=== PATIENT | female | born 1950 | race Caucasian/White ===

== ENCOUNTER 2017-02-15 19:54 | Inpatient (IN) | payer OTHER ==
[~2017-02-15] VITALS: Ht 149.9 cm; Wt 47.6 kg
--- NOTE | ~2017-02-15 | H ---
[facility] [place] [address] HISTORY AND PHYSICAL Name: KENDRA KUMAR Room #: 464-P [facility] IN M.R.#: [id number] Admission: 02/15/17 Attend Phys: Apolinar Werner MD Discharge: Date of : 50 Report #: [id number] THIS REPORT FOR: //name// CC: Apolinar Werner DATE OF SERVICE: 02/16/2017 CHIEF COMPLAINT: Vomiting and diarrhea. HISTORY OF PRESENT ILLNESS: The patient is a 66-year-old female known to me who states she was her normal self and suddenly developed vomiting, diarrhea yesterday morning, it got better and it came back around dinner time. She developed diarrhea. She has had a prior partial colon resection for diverticulitis. She has no other focal symptoms and does not even have pain. PAST MEDICAL HISTORY: Significant for: 1. Diverticulitis, status post partial resection. 2. Hypertension. 3. Hyperlipidemia. She had a prior cholecystectomy, C-sections, tonsils and colon resection. She has also had hypothyroidism and reflux. MEDICATIONS: Include levothyroxine, amlodipine 5 mg a day, Maxzide one daily, atorvastatin 10 mg a day, Mucinex daily, Zyrtec 10 mg a day, hydrocodone p.r.n. pain, daily, and Pepcid daily. ALLERGIES: BETADINE. SOCIAL HISTORY: She is a nonsmoker. Does drink alcohol occasionally. No recreational drugs. REVIEW OF SYSTEMS: CONSTITUTIONAL: No fever or chills. HEENT: No headaches or visual changes. CHEST: No chest pain, tightness in chest, short of breath, cough or sputum production. GASTROINTESTINAL: Per above. GENITOURINARY: No burning or frequency. EXTREMITIES: No new joint pains or swelling. SKIN: No rashes or wounds. NEUROLOGIC: No numbness or weakness. PHYSICAL EXAMINATION: VITAL SIGNS: Blood pressure in the ER was 207/105, she is now down to 149/82, her pulse was 97, respiratory rate 18. She is afebrile. GENERAL: She is currently feeling better now after multiple doses of antiemetics. She has no more nausea, vomiting or diarrhea. She was, however, [facility] [address] [place] [address] HISTORY AND PHYSICAL Name: KENDRA KUMAR Room #: 464-[facility] IN .R.#: [id number] Admission: 02/15/17 Attend Phys: Apolinar Werner MD Discharge: Date of : 50 Report #: [id number] vomiting throughout the night. HEENT: Her mucous membranes are dry. NECK: Supple, without adenopathy, thyromegaly or bruits. CHEST: Clear to auscultation. CARDIOVASCULAR: Regular, without murmur. ABDOMEN: Slightly distended, but soft. No palpable masses, no hepatosplenomegaly. Bowel sounds are present and active. No rebound or guarding. EXTREMITIES: Show no edema. Pulses are intact. SKIN: No rashes or wounds. NEUROLOGIC: No new numbness or weakness. DIAGNOSTIC DATA: EKG sinus rhythm, rate of 90, no ST segment changes. ADMIT LABORATORY DATA: Sodium 139, potassium 3.3, chloride 102, bicarbonate 24, BUN 11, creatinine 0.8, glucose 154. AST 20, ALT 20, troponin less than 0.04, albumin 3.6. Lipase 136. WBCs 12.9, hemoglobin 14.8, hematocrit 44.1, platelet count 328, 75 segs, 17 lymphs. Urinalysis, very concentrated, greater than 1.030 specific gravity, otherwise unremarkable. CT scan of the abdomen shows a prior abdominal surgery, malposition of the cecum, but no significant bowel obstruction. There is some very slight thickening of the distal colon, but no masses or abscesses. ASSESSMENT: 1. Intractable nausea and vomiting, possibly early partial small-bowel obstruction, that is resolving. She is improving. We will continue antiemetics. 2. Mild acute kidney injury with dehydration. We will give IV fluids. 3. Hypokalemia. We will replace potassium IV. We will gradually advance her diet slowly and see how she does. 4. Hypertension. We will resume her home meds. 5. Hypothyroidism. Resume home meds. By: [id number] Apolinar Werner MD /nt
--- NOTE | ~2017-02-15 | EKG ---
[place] [address] [facility] [place] [address] ELECTROCARDIOGRAM REPORT Name: KENDRA KUMAR Room #: 464-P ADM IN M.R.#: [id number] Admission: 02/15/17 Attend Phys: Apolinar Werner MD Discharge: Date of : 50 Report #: [id number] THIS REPORT FOR: //name// [facility] ED Test Date: 2017-02-15 Test Time: 20:08:03 Pat Name: KENDRA KUMAR Department: Room: 464 Gender: F Remelt Operator: SHELLY : 1950 Requested By: Chris Hogan Order Number: [id number] MD: Romero Santiago Measurements Intervals [place] Rate: 90 P: 62 AZ: 196 QRS: -19 QRSD: 97 T: 39 QT: 425 QTc: 520 Interpretive Statements Sinus rhythm Borderline left axis deviation Prolonged QT interval No previous ECG available for comparison Electronically Signed On 02-16-2017 15:09:38 CDT by Romero Santiago [email or web address] <ELECTRONICALLY SIGNED> By: Romero Santiago MD, [facility] 02/16/17 1509 07 07 Romero Santiago MD, FACC /EPI
[~2017-02-15 19:54] MED LIST: ACID REDUCER20 MG PO; CIPRO500 MG PO; FLAGYL500 MG PO; LEVOTHYROXINE0.05 MG PO; LIPITOR10 MG PO; MAXZIDE-25 MG1 EACH PO; MUCINEX TA600 MG/TA2 PO; NABUMETONE 750750 M1 PO; NORCO 5-325 TA1 EACH PO; NORVASC5 MG PO; PROAIR HFA8.5 GM INH; SENNA-S TABLET1 EACH PO; ZOFRAN ODT4 MG PO; ZYRTEC10 MG PO
[2017-02-15 20:03] VITALS: BP 207/105
[2017-02-15 20:39] LABS: URINE BILIRUBIN NEGATIVE (Negative); URINE BLOOD 1+ (Negative); URINE COLOR YELLOW; URINE GLUCOSE-RANDOM* NEGATIVE (Negative); URINE KETONES TRACE (Negative); URINE LEUKOCYTES-REFLEX NEGATIVE (Negative); URINE PROTEIN (DIPSTICK) 3+ (Negative); URINE SPECIFIC GRAVITY >= 1.030 (1.003-1.035); URINE UROBILINOGEN 0.2 E.U./dl (0.2-1.0)
[2017-02-15 20:48] LABS: ABSOLUTE NEUTROPHILS 9.7 thou/uL (1.4-8.2); BASOPHILS 0.3 % (0.0-2.0); EOSINOPHILS 1.1 % (0.0-3.0); HEMATOCRIT 44.1 % (37.0-47.0); HEMOGLOBIN 14.8 gm/dL (12.0-15.0); LYMPHOCYTES 17.9 % (24.0-44.0); MCH 29.4 pg (26.0-34.0); MCHC 33.5 g/dL (28.0-37.0); MCV 87.8 fL (80.0-100.0); MONOCYTES 5.6 % (1.0-8.0); PLATELET COUNT 328 thou/uL (150-400); POLYS 75.1 % (36.0-66.0); RBC 5.02 mil/uL (4.20-5.00); RDW 14.3 % (10.5-14.5); WBC 12.9 thou/uL (4.0-11.0)
[2017-02-15 20:49] LABS: MANUAL DIFF NO
[2017-02-15 20:52] LABS: ANION GAP 13 mmol/L (7-16); BUN 11 mg/dL (7-18); CALCIUM 9.2 mg/dL (8.5-10.1); CHLORIDE 102 mmol/L (98-107); CO2 24 mmol/L (21-32); CREATININE 0.8 mg/dL (0.6-1.0); GLUCOSE 154 mg/dL (74-106); POTASSIUM 3.3 mmol/L (3.5-5.1); SODIUM 139 mmol/L (136-145)
[2017-02-15 20:59] LABS: ALBUMIN 3.6 g/dL (3.4-5.0); ALKALINE PHOSPHATASE 120 U/L (46-116); SGOT 20 U/L (15-37); SGPT 20 U/L (30-65); TOTAL BILIRUBIN 0.7 mg/dL (<0.1-1.0); TOTAL PROTEIN 7.4 g/dL (6.4-8.2); TROPONIN-I < 0.04 ng/mL (<0.04-0.07)
[2017-02-15 21:12] LABS: SQUAMOUS 0-3 Few /LPF (0-3)
[2017-02-15 21:13] LABS: CASTS None Seen /LPF (None Seen); CRYSTALS None Seen /LPF (None Seen); URINE RBC 3-10 Few /HPF (0-2); URINE WBC-REFLEX None Seen /HPF (0-5)
[2017-02-15 23:15] VITALS: BP 168/73
[2017-02-15 23:20] VITALS: BP 143/85
[2017-02-16 08:35] VITALS: BP 128/70
[2017-02-16 12:09] VITALS: BP 141/75
[2017-02-16 12:51] LABS: HEMATOCRIT 39.1 % (37.0-47.0); HEMOGLOBIN 12.9 gm/dL (12.0-15.0); MCH 29.3 pg (26.0-34.0); MCV 88.6 fL (80.0-100.0); RBC 4.41 mil/uL (4.20-5.00); RDW 14.3 % (10.5-14.5)
[2017-02-16 13:05] LABS: CALCIUM 7.7 mg/dL (8.5-10.1); CREATININE 0.6 mg/dL (0.6-1.0); POTASSIUM 3.3 mmol/L (3.5-5.1)
[2017-02-16 16:19] VITALS: BP 121/73
[2017-02-16 20:51] VITALS: BP 157/84
[2017-02-17 04:00] VITALS: BP 152/82
[2017-02-17 09:00] VITALS: BP 155/75
[2017-02-17 09:40] LABS: HEMATOCRIT 37.7 % (37.0-47.0); HEMOGLOBIN 12.5 gm/dL (12.0-15.0); MCH 29.3 pg (26.0-34.0); MCHC 33.2 g/dL (28.0-37.0); MCV 88.2 fL (80.0-100.0); RBC 4.27 mil/uL (4.20-5.00); RDW 14.6 % (10.5-14.5); WBC 12.4 thou/uL (4.0-11.0)
[2017-02-17 09:44] LABS: CALCIUM 7.8 mg/dL (8.5-10.1); CREATININE 0.5 mg/dL (0.6-1.0); POTASSIUM 3.3 mmol/L (3.5-5.1)
[2017-02-17] MEDS ORDERED: AUGMENTIN 875-1 EACH PO (12:17)
[2017-02-17 12:38] VITALS: BP 155/75
[2017-02-17 13:44] VITALS: BP 143/82
== END 2017-02-17 14:04 | disposition home or self-care (01) | DRG 388 ==
LOC: ER 19:54 → 4W 22:24 → EROBS 22:24 → 4W 23:10
PROVIDERS: Family Medicine; Physician Assistant
DX: K56.60 Unspecified intestinal obstruction (principal); J69.0 Pneumonitis due to inhalation of food and vomit; N17.9 Acute kidney failure, unspecified; I10 Essential (primary) hypertension; E78.5 Hyperlipidemia, unspecified; K21.9 Gastro-esophageal reflux disease without esophagitis; E03.9 Hypothyroidism, unspecified; E86.0 Dehydration; E87.6 Hypokalemia; Z90.49 Acquired absence of other specified parts of digestive tract; Z88.8 Allergy status to other drugs, medicaments and biological substances; Z91.041 Radiographic dye allergy status
CPT/HCPCS: 10045

== ENCOUNTER → 2017-10-31 | Outpatient (CLI) | payer OTHER ==
[~2017-10-31] MED LIST changes: +AUGMENTIN 875-1 EACH PO
== END ==
LOC: CAT 07:31
DX: K86.89 Other specified diseases of pancreas (principal); K57.32 Diverticulitis of large intestine without perforation or abscess without bleeding; I10 Essential (primary) hypertension; E03.9 Hypothyroidism, unspecified; Z90.49 Acquired absence of other specified parts of digestive tract; Z86.718 Personal history of other venous thrombosis and embolism

== ENCOUNTER → 2018-03-19 | Outpatient (CLI) | payer OTHER | LOC: RAD 00:56 | DX: Z12.31 Encounter for screening mammogram for malignant neoplasm of breast (principal) ==

== ENCOUNTER → 2018-04-20 | Outpatient (CLI) | payer OTHER | LOC: NUC 09:37 | DX: Z13.820 Encounter for screening for osteoporosis (principal); N91.2 Amenorrhea, unspecified; Z78.0 Asymptomatic menopausal state ==

== ENCOUNTER 2018-12-07 05:19 | Inpatient (IN) | payer OTHER ==
[2018-11-16 13:15] LABS: HEMATOCRIT 45.1 % (37.0-47.0); HEMOGLOBIN 15.3 gm/dL (12.0-15.0); MCH 29.9 pg (26.0-34.0); MCHC 33.9 g/dL (28.0-37.0); MCV 88.2 fL (80.0-100.0); RBC 5.12 mil/uL (4.20-5.00); RDW 13.9 % (10.5-14.5); WBC 10.2 thou/uL (4.0-11.0)
[2018-11-16 13:20] LABS: ALBUMIN 4.1 g/dL (3.4-5.0); CALCIUM 9.7 mg/dL (8.5-10.1); CREATININE 0.7 mg/dL (0.6-1.0); POTASSIUM 3.6 mmol/L (3.5-5.1)
[2018-11-16 13:21] LABS: URINE COLOR YELLOW
[2018-11-16 13:22] LABS: URINE BILIRUBIN NEGATIVE (Negative); URINE BLOOD NEGATIVE (Negative); URINE CLARITY CLEAR; URINE GLUCOSE-RANDOM* NEGATIVE (Negative); URINE KETONES NEGATIVE (Negative); URINE LEUKOCYTES-REFLEX NEGATIVE (Negative); URINE NITRITE-REFLEX NEGATIVE (Negative); URINE PROTEIN (DIPSTICK) NEGATIVE (Negative); URINE UROBILINOGEN 0.2 E.U./dl (0.2-1.0)
[2018-11-16 13:25] LABS: PROTIME 10.4 Seconds (9.3-11.4)
[~2018-12-07] VITALS: Ht 147.3 cm; Wt 64.9 kg
[~2018-12-07 05:19] MED LIST changes: +BENADRYL25 MG PO; +BONIVA150 MG PO; +MUCINEX100 MG PO; +SYNTHROID50 MCG PO
[2018-12-07 07:37] VITALS: BP 154/76
[2018-12-07 11:00] VITALS: BP 132/85
--- NOTE | 2018-12-07 11:21 | O ---
[facility] [place] [place] [address] OPERATIVE REPORT Name: KENDRA KUMAR Room #: 427-P [facility] IN M.R.#: [id number] Admission: 12/07/18 Attend Phys: Per Varghese MD Discharge: Date of : 50 Report #: [id number] THIS REPORT FOR: //name// CC: Per Hernandezshyam Werner DATE OF SERVICE: 12/07/2018 PREOPERATIVE DIAGNOSIS: End-stage degenerative osteoarthritis of the left knee. POSTOPERATIVE DIAGNOSIS: End-stage degenerative osteoarthritis of the left knee. PROCEDURE: Left total knee arthroplasty. SURGEON: Per Varghese M.D. INDICATIONS: This frail 68-year-old female complains of severe progressive left knee pain. Clinical exam and x-rays confirm severe degenerative osteoarthritis. We have discussed the treatment options and elected to go ahead with total knee replacement. DESCRIPTION OF PROCEDURE: The patient was taken to the operating room, where she was placed under general anesthesia. Prophylactic intravenous antibiotics were administered. The left knee and leg were meticulously prepped and draped. A thigh tourniquet was inflated to 300 mmHg. An anterior longitudinal skin incision was made and the patella was reflected laterally. Marked degenerative change in all 3 compartments was noted. The Lopez and Nephew knee system was utilized and intramedullary guides were used on both the femur and the tibia. The femur was cut in 5 degrees of valgus and the tibia cut perpendicular to long axis of the bone. Sufficient bone was resected to correct the mild preoperative varus malalignment. The femur seemed best suited for a size 3 femoral component. The tibia was best suited for a size 2 tibial component. A 9-mm polyethylene insert trial was placed and this resulted in good alignment, range of motion and stability. The patellar surface was resected and a 29-mm patellar button fit nicely and the patella seemed to track well. The trial components were removed. The bony surfaces were thoroughly irrigated and dried. The intramedullary canal was blocked with a bone block on both the femoral and tibial sides. Methyl methacrylate cement was mixed and injected into the porous surface of the proximal tibia. The Lopez and Nephew size 2 Verónica left tibial base plate was applied. This was impacted into position. It seated nicely and appeared to be secure. A 9-mm polyethylene Legion cruciate-retaining insert was applied. This snapped into position and seated nicely and appeared to be secure. A left size 3 Lopez and Nephew cruciate-retaining Legion femoral component was applied. Given her rather [facility] [address] [place] [address] OPERATIVE REPORT Name: KENDRA KUMAR Room #: 427-P [facility] IN M.R.#: [id number] Admission: 12/07/18 Attend Phys: Per Varghese MD Discharge: Date of : 50 Report #: [id number] significant osteoporosis, a moderate amount of cement was used around the distal aspect and at the anchor holes. Excess cement was removed from its margin. The component seated nicely and appeared to be secure. A size 29 Verónica II patellar resurfacing component was cemented into place using appropriate anchor holes and cement. It was secured with a patellar clamp until the cement had hardened. Range of motion, alignment and stability were assessed and felt to be satisfactory. A single Hemovac was left in the wound. The tourniquet was deflated after a total tourniquet time of 55 minutes. Good hemostasis was confirmed. The fascia was then closed with multiple #1 Vicryl sutures. The subcutaneous tissues were closed with 0 Monocryl. The skin was closed with skin elena. Sterile dressing was applied. The patient was awakened and returned to the recovery room in good condition. <ELECTRONICALLY SIGNED> By: Per Varghese MD 12/07/18 1121 [id number] Per Varghese MD /nt
--- NOTE | 2018-12-07 12:26 | NUR ---
RECEIVED PT FROM OR. PT RESTING IN BED. DENIES PAIN BUT C/O MILD GENERAL DISCOMFORT. BUPIVICAIN IN PLACE, HEMOVAC INTACT, KATHI DRESSING INTACT. TEDS/SCDS. IVF INFUSING. TOLERATING DIET. FAMILY AT BEDSIDE. WILL CONT. TO MONITOR.
[2018-12-07 16:20] VITALS: BP 107/61
[2018-12-07 20:42] VITALS: BP 117/63
--- NOTE | 2018-12-08 02:09 | NUR ---
A/O, calm and pleasant; denied pain; Bupivacaine was set to 6 by the day nurse at the end of the day shift,and to 4 by the night nurse at midnight; abx administrated; drainage works well; ice pack offered; wound dressing dry and intact. vss, afebrile. will keep monitoring.
[2018-12-08 05:30] VITALS: BP 141/64
[2018-12-08 05:30] LABS: HEMOGLOBIN 11.2 gm/dL (12.0-15.0); MCHC 32.9 g/dL (28.0-37.0); MCV 88.3 fL (80.0-100.0); RBC 3.85 mil/uL (4.20-5.00); RDW 13.9 % (10.5-14.5); WBC 11.2 thou/uL (4.0-11.0)
[2018-12-08 07:20] VITALS: BP 132/93
--- NOTE | 2018-12-08 09:44 | NUR ---
ASSUMED CARE THIS AM, SHIFT ASSESSMENT DONE, MEDS GIVEN. REPROTED MILD PAIN, PRE-MEDICATED FOR PHY. THERAPHY. WORKED WITH PHYSICAL THERAPHY, SITTING IN THE CHAIR THIS AM. HEMOVAC DRAIN WAS PULLED OUT. HAS BIPUVACAINE, LOWERED TO 2. IV FLUIDS DISCOPNTINUED. WILL CONTINUE TO ASSESS AND ASSIST WITH ADLs NEEDED.
--- NOTE | 2018-12-08 10:15 | NUR ---
0840 HEMOVAC DRAIN DISCONTINUED. 15 CC BLOOD OUTPUT. NO DIFICULTIES WITH DISCONTINUE
[2018-12-08 12:15] VITALS: BP 148/87
--- NOTE | 2018-12-08 14:35 | NUR ---
I have reviewed and concur with student documentation.
--- NOTE | 2018-12-08 14:38 | NUR ---
PATIENTS GOAL WAS TO WALK TO THE BATHROOM TODAY. PHYSICAL THERAPY MET WITH PATIENT AFTER BREAKFAST. PATIENT WALKED USP TO THE BATHROOM. PATIENT SAT IN CHAIR UNTIL AFTER LUNCH TIME. DURING HER TIME IN THE CHAIR, SHE GOT UP TO VOID IN THE BEDSIDE COMMODE. PATIENT ALSO GAVE HERSELF A BED BATH WHILE IN THE CHAIR. PHYSICAL THERAPY MET WITH PATIENT AGAIN AFTER LUNCH. PATIENT AMBULATED DOUBLE THE DISTANCE SHE DID THIS MORNING. AFTER AMBULATING PATIENT USED BEDSIDE COMMODE TO VOID AND THEN GOT IN TO BED. LABORED BREATHING WAS NOTED AFTER RETURNING TO BED. PATIENT STATED IT WAS NORMAL AND DUE TO PAIN. PATIENT HAD SLIGHT LABORED BREATHING DURING DAY AND A NON-PRODUCTIVE COUGH. BREATHING WORSENS WITH AMBULATION.
--- NOTE | 2018-12-08 15:19 | NUR ---
PT ADMITTED RELATED TO LT TOTAL KNEE REPLACEMENT. CM REVIEWED CHART AND SPOKE WITH CARE TEAM. CM MET WITH PT AT BEDSIDE THIS DAY. PT IS A&O X4. CM ROLE INTRODUCED. PT INDICATED SHE LIVES IN A HOUSE WITH HER SPOUSE WITH 3 STEPS TO ENTER AND NO STEPS INSIDE. PT INDICATED SHE HAD BEEN INDEPENDENT WITH GAIT AND ADLS FLASK FITTER. PT INDICATED SHE WILL NEED A FWW ISSUED PRIOR TO DISCHARGE. PT INDICATED SHE IS SET UP WITH OP PT APPOINTMENT HERE AT [facility] OP THERAPY FOR FRIDAY AT 1:00. CM TO SEND FWW ORDER TO [facility]. CM TO FOLLOW INDICATED WITH DC PLANNING.
[2018-12-08 16:02] VITALS: BP 137/66
[2018-12-08 19:35] VITALS: BP 150/78
[2018-12-09 01:00] VITALS: BP 128/66
[2018-12-09 04:10] VITALS: BP 161/87
--- NOTE | 2018-12-09 06:03 | NUR ---
PT UP TO BSC WITH SBA. TEDS AND SCDS IN PLACE. TMAX OF 100.9, RELIEVED WITH TYLENOL X 1. DENIES NAUSEA OR VOMITING.L KNEE DRSG C/D/I. WILL CONTINUE WITH POC TILL EOS.
[2018-12-09 06:10] LABS: HEMATOCRIT 33.9 % (37.0-47.0); HEMOGLOBIN 11.5 gm/dL (12.0-15.0); MCH 29.8 pg (26.0-34.0); MCHC 33.9 g/dL (28.0-37.0); MCV 87.8 fL (80.0-100.0); RBC 3.86 mil/uL (4.20-5.00); RDW 13.8 % (10.5-14.5); WBC 9.7 thou/uL (4.0-11.0)
--- NOTE | 2018-12-09 10:33 | NUR ---
ASSUMED CARE AT 0700, SHIFT ASSESSMENT DONE, MEDS GIVEN, VSS. REPORTED PAIN, PRN PAIN MEDS GIVEN. WORKED WITH PHYSICAL THERAHPY, WALKED AROUND THE UNIT. REPORTED NAUSEA THIS AM, 2 EPISODES OF VOMITING, OFFERED LEMON HOH WITH GOOD RELIEF. WILL CONTINUE TO ASSESS AND ASSIST WITH ADLs NEEDED.
--- NOTE | 2018-12-09 15:31 | NUR ---
IT IS ANTICIPATED THAT PT WILL BE MEDICALLY STABEL TO DISHCARGE HOME TOMORROW. CM ORDERED FWW THROUGH [facility] EM[facility]. THEY RECEIVED ORDER AND WILL BE DELIVERING FWW TO PT THIS AFTERNOON IN RM [address] IN [facility]. PT IS ESTABLISHED WITH OP PT APPOINTMENT HERE FRIDAY. NO OTHER CM INTERVENTION INDICATED AT THIS TIME. CASE CLOSED.
--- NOTE | 2018-12-09 16:11 | NUR ---
PATIENT TRANSFERRED TO UNIT FROM 4E ROOM #427. REPORT GIVEN BY NURSE HICKMAN. PATIENT ORIENTED TO UNIT, AND SETTLED WITH BELONGINGS AND CALL LIGHT WITHIN REACH.
[2018-12-09 16:13] VITALS: BP 152/64
[2018-12-09 21:35] VITALS: BP 126/90
--- NOTE | 2018-12-10 05:53 | NUR ---
PATIENT ALERT AND ORIENTED X4. WILLING TO DO ANYTHING AND EVERYTHING TO GET BETTER. SAYS SHE WILL DO WHAT EVER IS ASKED OF HER TO GET THAT WAY. UP WITH SBA AND WALKER. KATHI DRESSING ON L KNEE INTACT. HAS DRY BLOOD DOWN MIDDLE OF DRESSING. C/O PAIN, MED GIVEN. SLEPT MOST OF NIGHT.
[2018-12-10 06:39] LABS: HEMATOCRIT 34.2 % (37.0-47.0); HEMOGLOBIN 11.2 gm/dL (12.0-15.0); MCH 29.4 pg (26.0-34.0); MCHC 32.8 g/dL (28.0-37.0); MCV 89.6 fL (80.0-100.0); RBC 3.81 mil/uL (4.20-5.00); RDW 14.2 % (10.5-14.5); WBC 9.6 thou/uL (4.0-11.0)
--- NOTE | 2018-12-10 08:00 | NUR ---
A&0X4, SPEAKS LOUDLY, GOOD SPIRITS, B/P ELEVATED YET SHE WAS WAVING HER ARMS AROUND FUSSING AT HER SPOUSE, D/C ORDERS PENDING AND LET HER KNOW WE'D MAKE IT A PRIORITY YET IT CAN TAKE AN HOUR OR SO, SHE WANTS TO EAT BREAKFAST AND HAVE THERAPY, WILL KEEP PAIN IN CONTROL, TOILETING MEDS ADM, LAST BM PRIOR TO SURGERY 0500 FRIDAY A.M. NORMALLY HAS BM EACH MORNING. KATHI DRESSING W/DRIED BLOOD, REPORTS OF THIS BEING NOT CHANGED. ENCOURAGED PT TO USE CALL LIGHT FOR ANY NEEDS, HAS BEEN AMB W/CLOSE SBA W/STAFF
--- NOTE | 2018-12-10 10:03 | D ---
[facility] [place] [address] DISCHARGE SUMMARY Name: KENDRA KUMAR Room #: 223-P [facility] IN M.R.#: [id number] Admission: 12/07/18 Attend Phys: Per Varghese MD Discharge: Date of : 50 Report #: [id number] THIS REPORT FOR: //name// CC: Per Hernandezshyam Werner DATE OF SERVICE: 12/10/2018 FINAL DIAGNOSIS: End-stage degenerative osteoarthritis, left knee. OPERATIONS AND PROCEDURES: Left total knee arthroplasty. HISTORY: This slender, fit, active 68-year-old female has severe left knee pain. She has elected to go ahead with total knee arthroplasty. HOSPITAL COURSE: The patient was admitted and taken to the Operating Room on 12/07/2018. She underwent left total knee arthroplasty, which she tolerated well. Postoperatively, her course was largely unremarkable. Her pain was very well controlled with a femoral nerve block and oral analgesics. She was able to resume a regular diet with minimal nausea. She participated with physical therapy and made good progress and seems safe and stable with independent ambulation at this point. The dressing is dry and she has no apparent problems today. She demonstrates good range of motion and improving strength with minimal discomfort. We will proceed with hospital discharge today. I have suggested a moderate independent exercise at home. She will also start outpatient therapy program tomorrow. DISCHARGE MEDICATIONS: Include Xarelto 10 mg daily and hydrocodone 10 mg every 6-8 hours p.r.n. for pain. She will continue regular diet. She will follow up with Dr. Werner with regard to any general medical problems. I will plan to see her back in my office in 1 week for followup and then in another week for suture removal. <ELECTRONICALLY SIGNED> By: Per Varghese MD 12/10/18 1003 [id number] Per Varghese MD /nt
[2018-12-10 10:23] VITALS: BP 126/90
--- NOTE | 2018-12-10 11:05 | NUR ---
PT DISCHARGING WITH ALL BELONGINGS, W/C OUT TO MED MALL W/SPOUSE ACCOMPANYING, ALL D/C PAPERWORK SIGNED, RX'S GIVEN ALONG WITH INFO SHEETS.
--- NOTE | 2018-12-10 12:35 | NUR ---
DISCHARGE NOTE: SW reviewed chart and spoke with nursing. Pt was transferred to [facility] from and is medically stable for discharge home today. Pt's roller walker was delivered to pt yesterday. Pt will begin outpatient therapy tomorrow. Pt's family to provide transportation home. No additional SW needs identified at this time, but is available to assist should needs arise.
== END 2018-12-10 11:25 | disposition home or self-care (01) | DRG 470 ==
LOC: 4E 05:19 → TBA 05:19 → PRE 05:23 → 4E 11:07 → PRE 13:37 → ENTRNSPT 12-09 15:38 → EDTRNSPTSTS 12-09 15:40 → SICU 12-09 16:10 → CMPTRNSPT 12-10 10:58 → ENTRNSPT 12-10 10:59 → EDTRNSPTSTS 12-10 11:04 → SICU 12-10 11:25
PROVIDERS: ADMIT Orthopaedic Surgery
PROC: 0SRC0J9 Replacement of Right Knee Joint with Synthetic Substitute, Cemented, Open Approach (ICD-10-PCS; principal; 2018-12-07)
DX: M17.10 Unilateral primary osteoarthritis, unspecified knee (principal); I10 Essential (primary) hypertension; E03.9 Hypothyroidism, unspecified; K59.00 Constipation, unspecified; Z79.899 Other long term (current) drug therapy
CPT/HCPCS: 10783; 15002; 50010; 50101; 50415; 50954; 51130; 51225; 51412; 53364; 56525; 57095; 57104; 57180; 62110; 62900; 64041; 64043; 70005

== ENCOUNTER → 2019-03-24 | Outpatient (CLI) | payer OTHER | LOC: RAD 01:16 | DX: Z12.31 Encounter for screening mammogram for malignant neoplasm of breast (principal) ==

== ENCOUNTER → 2020-04-03 | Outpatient (CLI) | payer OTHER | LOC: BC 03-28 11:36 | PROVIDERS: ATTEND Family Medicine | DX: Z12.31 Encounter for screening mammogram for malignant neoplasm of breast (principal) ==

== ENCOUNTER → 2020-04-24 | Outpatient (CLI) | payer OTHER | LOC: SJCVC 13:28 | PROVIDERS: ATTEND Internal Medicine Cardiovascular Disease | DX: R94.31 Abnormal electrocardiogram [ECG] [EKG] (principal); R93.1 Abnormal findings on diagnostic imaging of heart and coronary circulation; R01.1 Cardiac murmur, unspecified; I25.10 Atherosclerotic heart disease of native coronary artery without angina pectoris; E78.00 Pure hypercholesterolemia, unspecified; I10 Essential (primary) hypertension; R06.02 Shortness of breath ==

== ENCOUNTER → 2020-04-26 | Outpatient (CLI) | payer OTHER | LOC: SJCVCIMAG 08:57 | PROVIDERS: ATTEND Internal Medicine Cardiovascular Disease | DX: I10 Essential (primary) hypertension (principal); E78.5 Hyperlipidemia, unspecified; I25.10 Atherosclerotic heart disease of native coronary artery without angina pectoris ==

== ENCOUNTER → 2021-01-25 | Outpatient (CLI) | payer OTHER | LOC: SJCVC 13:49 | PROVIDERS: ATTEND Internal Medicine Cardiovascular Disease | DX: R93.1 Abnormal findings on diagnostic imaging of heart and coronary circulation (principal); I10 Essential (primary) hypertension; R01.1 Cardiac murmur, unspecified; E78.00 Pure hypercholesterolemia, unspecified; E03.9 Hypothyroidism, unspecified; Z79.82 Long term (current) use of aspirin; Z79.899 Other long term (current) drug therapy ==

== ENCOUNTER → 2021-03-19 | Outpatient (CLI) | payer OTHER | LOC: NUC 13:41 | PROVIDERS: ATTEND Family Medicine | DX: M85.851 Other specified disorders of bone density and structure, right thigh (principal); M85.852 Other specified disorders of bone density and structure, left thigh; M81.0 Age-related osteoporosis without current pathological fracture ==

== ENCOUNTER → 2021-04-04 | Outpatient (CLI) | payer OTHER | LOC: BC 09:58 | PROVIDERS: ATTEND Family Medicine | DX: Z12.31 Encounter for screening mammogram for malignant neoplasm of breast (principal) ==